=== PATIENT | male | born 1990 ===

== ENCOUNTER 2017-04-29 12:51 | Emergency (ER) ==
[~2017-04-29] VITALS: Ht 177.8 cm; Wt 110.6 kg
[2017-04-29 12:51] VITALS: BP 150/71
[2017-04-29] MEDS ORDERED: ZYRT10CA PO (13:11)
== END 2017-04-29 13:55 | disposition left against medical advice (07) ==
LOC: M ED 13:46
DX: R04.0 Epistaxis (principal); Z53.21 Procedure and treatment not carried out due to patient leaving prior to being seen by health care provider